=== PATIENT | female | born 1965 | race Caucasian/White ===

== ENCOUNTER 2016-08-08 11:44 | Emergency (ER) | payer MEDICAID ==
[2016-08-08 11:57] VITALS: BP 168/111; PULSE 90; RESP 17; TEMP 97.7; O2SAT 97
--- NOTE | 2016-08-08 12:10 | EDPHY ---
H & P Time Seen by Provider: 08/08/16 12:06 HPI/ROS: CHIEF COMPLAINT: Left foot pain Limitations: vague historian HISTORY OF PRESENT ILLNESS: This patient is a homeless 50-year-old female who presents to the Emergency Department complaining of worsening left foot and ankle pain of unclear origin. She describes pain and swelling over the lateral malleolus, worsened when attempting to bear weight. She denies any additional injuries or complaints. She reports a history of fifth metatarsal fracture in February and calcaneus fracture at some point this spring, though she did not expand on this. She apparently twisted her ankle at some point "because [place]." She states that she has been recently evaluated by [facility] and placed in a cast which she removed after she showered. She presents requesting another cast. REVIEW OF SYSTEMS: no weakness, numbness, fever or laceration Past Medical/Surgical History: Multiple orthopedic injuries. Social History: Smokes daily. Smoking Status: Current every day smoker Physical Exam: General Appearance: Alert, no distress Focused exam of the left foot: Tenderness and swelling over the lateral malleolus of the left ankle. Limited ROM of ankle secondary to pain. Neuro: Sensation intact. Skin: intact, no erythema or open wound Vascular: 2+ pedal pulses Constitutional: Initial Vital Signs Temperature (C) 36.5 C 08/08/16 11:54 Heart Rate 90 08/08/16 11:54 Respiratory Rate 17 08/08/16 11:54 Blood Pressure 168/111 H 08/08/16 11:54 O2 Sat (%) 97 08/08/16 11:54 O2 Delivery Mode Room Air Allergies/Adverse Reactions: haloperidol [From Haldol] Allergy (Intermediate, Verified 08/08/16 11:51) Home Medications: Medication Instructions Recorded Carvedilol 08/08/16 Losartan Potassium 08/08/16 Oxycodone HCl 08/08/16 Medical Decision Making - Diagnostics Imaging Results: XRay interpreted by me: no acute fx ED Course/Re-evaluation: 50-year-old female with history of multiple orthopedic injuries presents with complaint of left foot pain and swelling, most severe over the left lateral malleolus. She has tenderness and swelling over the malleolus on exam suggestive of an ankle sprain. The patient is unable to provide a clear history of when she sprained this. She reports that it has been x-rayed but agrees to repeat imaging today. Will proceed with x-ray of the left ankle. X-ray of the left foot and ankle is negative for fracture. The patient will be placed in a Reji boot and given Lidoderm patches and Ibuprofen instructions for pain management. She is given a follow-up referral to [facility] in [place] and discharged home in good condition. - Data Points Medications Given: Discontinued Medications Lidocaine (Lidoderm 5%) 1 ea TD EDNOW ONE Stop: 08/08/16 12:19 Last Admin: 08/08/16 12:26 Dose: 1 ea Departure - Departure Disposition: Home, Routine, Self-Care Clinical Impression: Left ankle sprain Qualifiers: Encounter type: initial encounter Involved ligament of ankle: tibiofibular ligament Qualified Code(s): S93.432A - Sprain of tibiofibular ligament of left ankle, initial encounter Condition: Good Instructions: Ankle Sprain (ED) Additional Instructions: 1. Take 600mg Ibuprofen every 4-6 hours as needed for pain. 2. Wear a Mari Boot when bearing weight on your foot until your pain subsides. 3. Return to the Emergency Department with severe pain, increased swelling, pale color to your foot or leg, or for any additional serious concerns. 4. Follow-up at [facility] in [place] for any persistent pain or other concerns. Referrals: [facility] [Other] - As per Instructions Report Scribed for: Pat Egan Report Scribed by: Aurora Lei Date of Report: 08/08/16 Time of Report: 12:09 Physician Review and Approval Statement: 08/08/16 12:09 Portions of this note were transcribed by a biomedical analytical scientist. I personally performed a history, physical exam, medical decision making, and confirmed accuracy of information the transcribed note.
[2016-08-08] MEDS ORDERED: LIDOCAINE 5% 1 EA PATCH TD ONE (12:18)
[2016-08-08] MEDS ORDERED: PATCH REMOVAL 1 EA PATCH TD SCH (21:00)
== END 2016-08-08 13:37 | disposition home or self-care (01) ==
DX: S93.432A Sprain of tibiofibular ligament of left ankle, initial encounter (principal); F17.200 Nicotine dependence, unspecified, uncomplicated; X58.XXXA Exposure to other specified factors, initial encounter
CPT/HCPCS: L4386